=== PATIENT | male | born 1985 | race Caucasian/White ===

== ENCOUNTER 2017-04-15 00:19 | Emergency (ER) | payer BC ==
[2017-04-15 00:26] VITALS: BP 138/79; PULSE 64; RESP 18; TEMP 97.4
[2017-04-15] MEDS ORDERED: PROPARACAINE 0.5% OPHTH DROPS 15 ML BTL LEFT EYE STA (00:27)
--- NOTE | 2017-04-15 00:54 | ED ---
Eye Problem HPI - General Chief complaint: Eye Problems Stated complaint: Eye irritation Time Seen by Provider: 04/15/17 00:28 Source: patient Mode of arrival: ambulatory Limitations: no limitations - History of Present Illness Initial comments: Patient is a 32-year-old male who presents with a chief complaint of left eye pain and foreign body sensation. He was pain drywall earlier today about 7:00 PM and states that he felt a piece of debris hit him in the left eye. Patient states that he blinked and tried to clear it out. He tried irrigating his eye. Patient states that he still has retained foreign body sensation. Patient denies any visual changes however he states that it is more comfortable to keep his eye closed. Patient admits to tearing and redness of his eye. There are no other complaints at this time. chief complaint: eye pain, eye redness Onset/Timin -: hour(s) Onset Description: sudden Location: left eye Place: home If Injury: other (Occurred while hanging drywall) Eye Symptoms: redness, foreign body sensation Severity: moderate If Pain, Quality: burning Consistency: constant Associated Symptoms: none Treatments Prior to Arrival: irrigated eye - Related Data Home Medications Medication Instructions Recorded Confirmed No Known Home Medications [No 04/15/17 04/15/17 Known Home Medications] Allergies Allergy/AdvReac Type Severity Reaction Status Date / Time No Known Allergies Allergy Verified 05/10/16 21:34 Review of Systems ROS Statement: Those systems with pertinent positive or pertinent negative responses have been documented in the HPI. ROS Other: All systems not noted in ROS Statement are negative. Constitutional: Denies: fever, chills Eyes: Reports: eye pain. Denies: vision change ENT: Denies: ear pain, throat pain Respiratory: Denies: cough Cardiovascular: Denies: chest pain Endocrine: Denies: fatigue Gastrointestinal: Denies: abdominal pain Genitourinary: Denies: dysuria Past Medical History Past Medical History: No Reported History History of Any Multi-Drug Resistant Organisms: None Reported Past Surgical History: No Surgical Hx Reported Past Psychological History: No Psychological Hx Reported Smoking Status: Never smoker Past Alcohol Use History: Occasional Past Drug Use History: None Reported General Exam Limitations: no limitations General appearance: alert, in no apparent distress Head exam: Present: atraumatic, normocephalic Eye exam: Present: conjunctival injection Pupils: Present: other (Patient's eye was anesthetized and examined under fluorescein. Lids were inverted. There was no foreign objects identified. Fluorescein stain shows uptake in the left lateral aspect of the eye consistent with a corneal abrasion.) ENT exam: Present: normal exam Neck exam: Present: normal inspection Respiratory exam: Present: normal lung sounds bilaterally. Absent: respiratory distress Cardiovascular Exam: Present: regular rate, normal rhythm, normal heart sounds GI/Abdominal exam: Present: soft Rectal exam: Present: deferred Extremities exam: Present: normal inspection Back exam: Present: normal inspection Neurological exam: Present: alert, oriented X3 Psychiatric exam: Present: normal affect, normal mood Skin exam: Present: warm, dry, intact Course Vital Signs 04/15/17 00:24 Temperature 97.4 F L Pulse Rate 64 Respiratory 18 Rate Blood Pressure 138/79 O2 Sat by Pulse 99 Oximetry Medical Decision Making - Medical Decision Making Patient presents with a chief complaint of foreign body sensation in his left eye. Patient was hanging drywall earlier today and got a piece of debris in his eye. Physical examination shows fluorescein uptake in the left lateral aspect of the left eye consistent with a corneal abrasion. Lids were everted and swept, there was no foreign body identified patient will be prescribed Cipro drops and instructed to follow up with primary care and ophthalmology as needed. At this time, patient is stable for discharge. He is agreeable with care plan. He is instructed to return to the emergency department if his symptoms worsen or change in any way. Disposition Clinical Impression: Corneal abrasion Disposition: HOME SELF-CARE Condition: Good Instructions: Eye Foreign Body (ED) Referrals: Jesús Marie DO [Primary Care Provider] - 1-2 days
[2017-04-15] MEDS ORDERED: CIPROFLOXACIN 0.3% OPHTH SOLN 2.5 ML BTL LEFT EYE STA (00:55)
== END 2017-04-15 01:28 | disposition home or self-care (01) ==
LOC: EC 00:19
DX: S05.02XA Injury of conjunctiva and corneal abrasion without foreign body, left eye, initial encounter (principal); W45.8XXA Other foreign body or object entering through skin, initial encounter
CPT/HCPCS: 99283